=== PATIENT | female | born 1935 | race Caucasian/White ===

== ENCOUNTER 2018-12-14 19:27 | Emergency (ER) | payer MEDICARE ==
[~2018-12-14] VITALS: Ht 177.8 cm; Wt 77.1 kg
[~2018-12-14 19:27] MED LIST: ATENOLOL50 MG PO; METOPROLOL SUCC25 MG PO; NORVASC5 MG PO
[2018-12-14 21:41] VITALS: BP 148/105
== END 2018-12-14 21:45 | disposition left against medical advice (07) ==
LOC: ER 19:27
DX: R00.2 Palpitations (principal); I10 Essential (primary) hypertension
CPT/HCPCS: 93005; 99282

== ENCOUNTER → 2019-08-05 | Outpatient (CLI) | payer MEDICARE ==
--- NOTE | 2019-08-05 10:27 | Diagnostic Imaging Report ---
EXAMINATION: CHEST 2 VIEWS INDICATION: Pre-operative COMPARISON: None FINDINGS: LINES/TUBES:None LUNGS:The lungs are well-inflated. No focal consolidation or pulmonary edema. Mild subsegmental atelectasis at the left midlung zone. PLEURA:No pleural effusion or pneumothorax. MEDIASTINUM:The cardiomediastinal silhouette appears normal in size and shape. Atherosclerotic calcifications of the thoracic aorta. BONES/SOFT TISSUES:No acute osseous injury. ABDOMEN:No free air under the diaphragm. IMPRESSION: No focal pneumonia or pulmonary edema. Signed by: Nubia Lion MD on 08/05/2019 10:23 AM
== END ==
LOC: RAD 09:15
PROVIDERS: ATTEND Family Medicine
DX: Z01.818 Encounter for other preprocedural examination (principal)
CPT/HCPCS: 71046; 93005

== ENCOUNTER → 2020-01-06 | Outpatient (CLI) | payer MEDICARE ==
--- NOTE | 2020-01-06 11:06 | Diagnostic Imaging Report ---
Exam: PA and lateral chest radiograph Comparison: August 05, 2019 Clinical history: Preoperative clearance Findings: There is no evidence of pulmonary consolidation, pleural effusion, or pneumothorax. Scarring versus atelectasis of the left midlung is again noted. Mild levoscoliosis of the lower thoracic spine is also appreciated. Impression: 1. No radiographic evidence of acute cardiorespiratory disease. Signed by: Dr. Pablo Gardner MD on 01/06/2020 11:03 AM
== END ==
LOC: RAD 09:48
PROVIDERS: ATTEND Family Medicine
DX: Z01.818 Encounter for other preprocedural examination (principal); M17.12 Unilateral primary osteoarthritis, left knee
CPT/HCPCS: 71046; 93005

== ENCOUNTER 2020-01-13 07:14 | Observation (INO) | payer MEDICARE ==
[2020-01-10 11:04] LABS: BASOPHILS # (AUTO) 0.1 (0.0-0.1); BASOPHILS % 0.9 % (0.0-1.0); EOSINOPHILS # (AUTO) 0.2 (0.0-0.4); EOSINOPHILS % 3.7 % (0.0-6.0); HEMATOCRIT 38.9 % (34.2-44.1); HEMOGLOBIN 12.8 g/dL (12.0-16.0); LYMPHOCYTES # (AUTO) 1.7 (1.0-3.2); LYMPHOCYTES % 28.1 % (18.0-39.1); MEAN CORPUSCULAR HEMOGLOBIN 29.4 pg (28-32); MEAN CORPUSCULAR HGB CONC 32.9 g/dL (31-35); MEAN CORPUSCULAR VOLUME 89.2 fL (81-99); MONOCYTES # (AUTO) 0.6 (0.2-0.8); MONOCYTES % 9.5 % (4.4-11.3); NEUTROPHILS # (AUTO) 3.4 (2.1-6.9); NEUTROPHILS % 57.6 % (38.7-80.0); PLATELET COUNT 214 x10e3/uL (140-360); RED BLOOD COUNT 4.36 x10e6/uL (3.6-5.1); RED CELL DISTRIBUTION WIDTH 13.1 % (11.7-14.4)
--- NOTE | 2020-01-10 11:59 | Diagnostic Imaging Report ---
EXAMINATION: PA and lateral views of the chest. COMPARISON: 01/06/2020, 08/05/2019 CLINICAL HISTORY: Preoperative study for orthopedic procedure DISCUSSION: The lungs are well inflated. No focal airspace consolidation, pleural effusion, or pneumothorax. Tortuous thoracic aorta with atherosclerotic calcification, unchanged. Convexity of the right pericardiophrenic region of the mediastinum is unchanged dating to July 2019 and may reflect a pericardial cyst or hiatal hernia. No acute osseous abnormalities. IMPRESSION: No acute cardiopulmonary abnormality. Stable appearance of the chest relative to 01/06/2020. Signed by: Dr. Jhonathan Martin M.D. on 01/10/2020 11:56 AM
[~2020-01-13] VITALS: Ht 177.8 cm; Wt 81.6 kg
[~2020-01-13 07:14] MED LIST changes: +CENTRUM SILVER1 EAC3 PO; +LEXAPRO10 MG PO; +SERRAPEPTASE PO; +VIT B12 PO; +VIT D3 PO
--- OUTSIDE RECORDS SUMMARY | 2020-01-13 07:21 | XMS REPORT ---
Author [facility] Address Unknown Phone Unavailable Care Team Providers Care System Engineer Name Role Phone CHATA LANTIGUA Unavailable Unavailable PERRI DAVIS Unavailable Unavailable Problems This patient has no known problems. Allergies, Adverse Reactions, Alerts This patient has no known allergies or adverse reactions. Medications This patient has no known medications. Results Test Description Test Time Test Comments Text Results Atomic Results Result Comments CHEST 2 VIEWS 2020-01-10 11:52:00 [place] [address] Patient Name: JENELLE SNOW MR #: [id number] : 1935 Age/Sex: 84/F Req #: [id number] Adm Physician: Ordered by: CHATA LANTIGUA MD Report #: [id number] Location: OR Room/Bed: Procedure: [id number] DX/CHEST 2 VIEWS Exam Date: 01/10/20 Exam Time: 1105 REPORT STATUS: Signed EXAMINATION: PA and lateral views of the chest. COMP ARISON: 01/06/2020, 08/05/2019 CLINICAL HISTORY: Preoperative study for orthopedic procedure DISCUSSION: The lungs are well inflated. No focal airspace consolidation, pleural effusion, or pneumothorax. Tortuous thoracic aorta with atherosclerotic calcification, unchanged. Convexity of the right pericardiophrenic region of the mediastinum is unchanged dating to July 2019 and may reflect a pericardial cyst or hiatal hernia. No acute osseous abnormalities. IMPRESSION: No acute cardiopulmonary abnormality. Stable appearance of the chest relative to 01/06/2020. Signed by: Dr. Chata Hunt M.D. on 01/10/2020 11:56 AM Dictated By: CHATA HUNT MD 115 Transcribed By: SINGH on 01/10/20 115 COPY TO: CHATA LANTIGUA MD CHEST 2 VIEWS 2020-01-06 10:56:00 [place] [address] Patient Name: JENELLE SNOW MR #: [id number] : 1935 Age/Sex: 84/F Req #: [id number] Adm Physician: Ordered by: PERRI DAVIS MD Report #: [id number] Location: [facility] Room/Bed: Procedure: [id number] DX/CHEST 2 VIEWS Exam Date: 01/06/20 Exam Time: 1032 REPORT STATUS: Signed Exam: PA and lateral chest radiograph Comparison: 2018 Clinical history: Preoperative clearance Findings: There is no evidence of pulmonary consolidation, pleural effusion, or pneumothorax. Scarring versus atelectasis of the left midlung is again noted. Mild levoscoliosis of the lower thoracic spine is also appreciated. Impression: 1. No radiographic evidence of acute cardiorespiratory disease. Signed by: Dr. Pablo Gardner MD on 01/06/2020 11:03 AM Dictated By: ERWIN GARDNER MD 02 Transcribed By: SINGH on 01/06/20 110 COPY TO: PERRI DAVIS MD CHEST 2 VIEWS 2019-08-05 10:22:00 [facility] [address] [place] [address] Patient Name: JENELLE SNOW MR #: [id number] : 1935 Age/Sex: 84/F Req #: [id number] Adm Physician: Ordered by: PERRI DAVIS MD Report #: [id number] Location: [facility] Room/Bed: Procedure: DX/CHEST 2 VIEWS Exam Date: 08/05/19 Exam Time: 937 REPORT STATUS: Signed EXAMINATION: CHEST 2 VIEWS INDICATION: Pre-operative COMPARISON: None FINDINGS: LINES/TUBES:None LUNGS:The lungs are well-inflated. No focal consolidation or pulmonary edema. Mild subsegmental atelectasis at the left midlung zone. PLEURA:No pleural effusion or pneumothorax. MEDIASTINUM:The cardiomediastinal silhouette appears normal in size and shape. Atherosclerotic calcifications of the thoracic aorta. BONES/SOFT TISSUES:No acute osseous injury. ABDOMEN:No free air under the diaphragm. IMPRESSION: No focal pneumonia or pulmonary edema. Signed by: Humza Diaz MD on 08/05/2019 10:23 AM Dictated By: HUMZA DIAZ MD 1023 Transcribed By: SINGH on 08/05/19 1023 COPY TO: PERRI DAVIS MD
[2020-01-13] MEDS ORDERED: CELECOXIB 200 MG CAP ONE (07:33)
[2020-01-13] MEDS ORDERED: DEXAMETHASONE SOD PHOS 10 MG/1 ML VIAL ONE (07:33)
[2020-01-13] MEDS ORDERED: GABAPENTIN 300 MG CAP ONE (07:34)
[2020-01-13] MEDS ORDERED: VANCOMYCIN 1GM/NS 250 ML 250 ML ONE ×2 (07:34→09:04)
[2020-01-13] MEDS ORDERED: ROPIVACAINE 246.25 MG, EPINEPHRINE HCL 1:1000 1ML 0.5 MG, CLONIDINE HCL 0.08 MG, KETORO... INJ ONE ×5 (08:00)
[2020-01-13] MEDS ORDERED: LABETALOL HCL 20 ML ONE (08:20)
[2020-01-13] MEDS ORDERED: VANCOMYCIN HCL 500 MG ONE (09:14)
[2020-01-13] MEDS ORDERED: TRANEXAMIC ACID 1,000 MG/10 ML ML ONE (09:15)
[2020-01-13] MEDS ORDERED: BACITRACIN 50,000 UNIT VIAL ONE (09:15)
[2020-01-13] MEDS ORDERED: HYDROMORPHONE 1MG/1ML INJ ONE (09:27)
[2020-01-13] MEDS ORDERED: ACETAMINOPHEN 1000 MG/100 ML 100 ML IV ONE (10:53)
[2020-01-13] MEDS ORDERED: HYDROCODONE/APAP 7.5MG-325MG 1 EA TAB PO PRN (11:30)
[2020-01-13] MEDS ORDERED: ACETAMINOPHEN 650 MG SUPP PR PRN (11:30)
[2020-01-13] MEDS ORDERED: HYDROCODONE/APAP 5MG-325MG TAB PO PRN (11:30)
[2020-01-13] MEDS ORDERED: ONDANSETRON HCL INJ 2MG/ML 2ML 2 MG/ML VIAL IV PRN (11:30)
[2020-01-13] MEDS ORDERED: DOCUSATE SODIUM 100 MG CAP PO PRN (11:30)
[2020-01-13] MEDS ORDERED: PROMETHAZINE HCL (IM) 25 MG/ML VIAL IM PRN (11:30)
[2020-01-13] MEDS ORDERED: KETOROLAC TROMETHAMINE 30 MG/ML VIAL IV PRN (11:30)
--- NOTE | 2020-01-13 13:38 | Diagnostic Imaging Report ---
EXAMINATION: KNEE LEFT 1-2 VIEWS INDICATION: Postoperative COMPARISON: None FINDINGS: AP and lateral portable radiographs of the left knee demonstrate immediate postoperative findings of left total knee replacement. Alignment appears anatomic. No unexpected fracture. Postoperative subcutaneous soft tissue emphysema. Small joint effusion. Surgical skin cristina in place. IMPRESSION: Anatomic alignment status post left total knee replacement. Signed by: Nubia Lion MD on 01/13/2020 1:36 PM
[2020-01-13] MEDS ORDERED: PROPOFOL IV EMULSION 10 MG/ML 20 ML VIAL ONE (13:52)
[2020-01-13] MEDS ORDERED: LIDOCAINE HCL 2% LOCAL INJ 5 ML SDV VIAL INJ ONE (13:52)
[2020-01-13] MEDS ORDERED: ONDANSETRON HCL INJ 2MG/ML 2ML 2 MG/ML VIAL ONE (13:52)
[2020-01-13] MEDS ORDERED: LABETALOL HCL 5 MG/ML 20ML VIAL ONE (13:52)
[2020-01-13] MEDS ORDERED: LIDOCAINE 2%/ EPINEPHRINE 20ML MDV ONE (14:33)
[2020-01-13] MEDS ORDERED: BUPIVACAINE 0.25% 30ML SDV INJ ONE (14:33)
[2020-01-13 15:00] VITALS: BP 133/78
--- NOTE | 2020-01-13 15:00 | NUR ---
Received patient from PACU. Left knee with dressing and dmitri wrap and ice pack in placed. Denies pain at this time. Respiration even and unlabored without SOB. Call light in reach
[2020-01-13 15:31] VITALS: BP 133/78
[2020-01-13] MEDS: CELECOXIB 200 MG CAP PO SCH (16:41)
[2020-01-13] MEDS: ASPIRIN 325 MG TAB PO SCH (16:41)
[2020-01-13] MEDS ORDERED: CELECOXIB 100 MG CAP PO SCH (17:00)
[2020-01-13] MEDS ORDERED: MIDAZOLAM HCL 2 MG/2 ML VIAL ONE (17:58)
[2020-01-13] MEDS: ACETAMINOPHEN 1000 MG/100 ML IV SCH (18:43)
[2020-01-13] MEDS ORDERED: SODIUM CHLORIDE 0.9% 250ML 250 ML ONE (18:47)
[2020-01-13 20:00] VITALS: BP 122/74
[2020-01-13] MEDS ORDERED: ZOLPIDEM TARTRATE 5 MG TAB PO PRN (21:00)
[2020-01-13 21:15] VITALS: BP 122/74
[2020-01-13] MEDS: VANCOMYCIN 1GM/NS 250 ML 250 ML IV SCH (21:15)
--- NOTE | 2020-01-13 21:15 | NUR ---
PATIENT RESTING IN BED IN STABLE CONDITION, NO SIGNS OF DISTRESS NOTED. PATIENT WAS RECENTLY REMOVED FROM CPM DEVICE AND VOICES NO PAIN AT THIS TIME. IV ANTIBIOTICS ARE RUNNING AT ORDERED RATE. BED IS IN LOWEST POSITION, BOTH SIDE RAILS ARE UP, CALL LIGHT IS WITHIN EASY REACH, WILL CONTINUE TO MONITOR.
[2020-01-14] VITALS: BP 123/62
[2020-01-14] MEDS: ACETAMINOPHEN 1000 MG/100 ML IV SCH ×3 (00:04→12:00)
[2020-01-14 04:00] VITALS: BP 132/68
[2020-01-14 05:42] LABS: HEMATOCRIT 32.9 % (34.2-44.1); HEMOGLOBIN 11.1 g/dL (12.0-16.0)
--- NOTE | 2020-01-14 07:36 | Consultation ---
DATE OF CONSULTATION: REASON FOR CONSULTATION: Postop medical management. 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 PAST MEDICAL HISTORY: Hypertension and anxiety. MEDICATIONS: See MAR. ALLERGIES: SULFA, PENICILLIN, LISINOPRIL, CODEINE, ATENOLOL, FENTANYL, AMLODIPINE, AND FLU SHOTS. SOCIAL HISTORY: She is a . Nonsmoker and nondrinker. FAMILY HISTORY: Noncontributory. PHYSICAL EXAMINATION: VITAL SIGNS: Temperature 96.3, pulse of 90, blood pressure 123/62, and sats 97% on room air. GENERAL: No apparent distress, lying in bed. NECK: Supple. CARDIOVASCULAR: Regular rate and rhythm. LUNGS: Clear to auscultation bilaterally. ABDOMEN: Good bowel sounds. Soft and nontender. EXTREMITIES: No clubbing or cyanosis. NEUROLOGIC: Nonfocal. ASSESSMENT AND PLAN: 1. Anemia. We will check a CBC. 2. Left knee pain. We will continue with physical therapy and pain control. 3. Hypertension. We will continue to monitor her further medications. 4. Anxiety. We will also restart her medications. Please see hospital chart for full details. MD SEEMA Pozo/MARTHA /[id number]
[2020-01-14 08:35] VITALS: BP 143/70
[2020-01-14 08:54] VITALS: BP 143/70
--- NOTE | 2020-01-14 08:57 | NUR ---
DR CROFT OFFICE PREARRANGED FOLLOWING DISCHARGE PLAN OF: HOME TO [id number] [facility] CONFIRMED WITH [facility] [phone] DME CPM PROVIDED BY [employer] [facility] [phone], WE WILL PROVIDE ROLLING WALKER WITH WHEELS AND OBTAIN SIGNATURES AND FILE IN [place] SIGNED AND ON CHART COPY LEFT WITH PATIENT GAVE CARD FOR QUESTIONS AND OR CONCERNS.
[2020-01-14] MEDS: CELECOXIB 200 MG CAP PO SCH (09:08)
[2020-01-14] MEDS: ASPIRIN 325 MG TAB PO SCH (09:08)
[2020-01-14] MEDS: VANCOMYCIN 1GM/NS 250 ML 250 ML IV SCH (09:08)
[2020-01-14] MEDS ORDERED: ONDANSETRON HCL 4 MG ORAL DISINTEGRATING TAB PO PRN (11:45)
[2020-01-14 12:10] VITALS: BP 159/81
--- NOTE | 2020-01-14 12:22 | Operative Report ---
DATE OF PROCEDURE: 01/13/2020 SURGEON: Jhonathan Richards MD SHEET METAL WORKER MAINTENANCE: Paulo Rucker, certified PA. PREOPERATIVE DIAGNOSIS: Osteoarthritis, left knee. POSTOPERATIVE DIAGNOSIS: Osteoarthritis, left knee. PROCEDURE: Left total knee arthroplasty. 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 She has failed conservative management and would like to proceed with a left total knee replacement. The risks and benefits have been discussed. All of her questions have been answered. She states she understands and wishes to proceed. PROCEDURE IN DETAIL: The patient was brought to the operating room and placed under general anesthetic. She received prophylactic antibiotics, a regional block, and tranexamic acid in the holding area. Her left lower extremity was prepped and draped in a sterile manner. A preoperative time-out was performed. The extremity was exsanguinated and a proximal tourniquet was inflated to 300 mmHg. An anterior incision with a medial parapatellar arthrotomy was performed. Blood-tinged synovial fluid was removed from the joint. Soft tissue releases were performed to bring the knee up into flexion with the patella everted. Limited medial dissection was performed due to the valgus deformity. Meniscal remnants and marginal osteophytes were removed. 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 Complete loss of articular cartilage in all 3 compartments was noted. An extramedullary cutting guide was used to resect the proximal tibia. A [employer] posterior stabilized knee system was used. The lateral plateau was slightly sclerotic. An additional drill holes were placed for later cement interdigitation. The tibial base plate was a size 5. The central fin punch was impacted and attention was directed towards the distal femur. An intramedullary cutting guide was used to resect the distal femur in 6 degrees of valgus and rotation referencing off a combination of landmarks including Whitesides line, the epicondylar axis, and the posterior condyles. The femoral component was a size 6. The anterior and posterior cuts were made. The notch cut was made. A 9 mm tibial insert provided appropriate soft tissue balancing in full extension and 90 degrees of flexion. The patella was then resurfaced with a 32 mm x 7.5 mm patellar button. The thickness was checked before and after and was right around 23 mm. Patellar tracking was concentric. The knee was well balanced to varus and valgus stress. No additional lateral release was necessary. The trial components were removed. A 100 mL premixed pericapsular STIVEN injection was placed into the surrounding soft tissue. The knee was thoroughly irrigated with a shower tip pulsatile lavage. All bone cuts had been irrigated with a spray mixture of diluted vancomycin and polymyxin spray. The components were then cemented into place using a single mix of high viscosity Biomet cement preloaded with gentamicin. Care was taken to remove extravasated cement. The wound was further irrigated while the cement cured. The arthrotomy was then carefully closed with interrupted #1 Ethibond. The knee was put through flexion and extension to ensure a secure closure. The skin was closed with subcuticular Vicryl and cristina. A sterile Aquacel bandage and an Tree wrap were applied. The patient was extubated and transported to the recovery room in stable condition. Blood loss was minimal. All needle and sponge counts were correct. Jhonathan Richards MD DR/MARTHA /[id number]
[2020-01-14] MEDS ORDERED: ACETAMINOPHEN 1000 MG/100 ML IV PRN (18:00)
== END 2020-01-14 14:30 | disposition home or self-care (01) ==
LOC: OR 07:14 → PACU V 11:24 → MED/SURG 14:59
PROVIDERS: ADMIT Specialist; ATTEND Specialist
DX: M17.12 Unilateral primary osteoarthritis, left knee (principal); D64.9 Anemia, unspecified; F41.9 Anxiety disorder, unspecified; I10 Essential (primary) hypertension; M19.042 Primary osteoarthritis, left hand; M19.041 Primary osteoarthritis, right hand
CPT/HCPCS: 27447; 36415 ×2; 71046; 73560; 85014; 85018; 85025; 86850; 86900; 86920; 93005 ×2; 97116; 97161; 97530 ×2; C1713; G0378 ×2; J0131 ×2; J0171; J1100; J1170; J1885; J2001 ×2; J2250; J2405; J2704; J2795; J3370 ×3; J3490; J7050